=== PATIENT | female | born 1995 | race Hispanic/Latino ===

== ENCOUNTER 2017-09-09 11:11 | Outpatient (CLI) | payer MEDICAID ==
--- NOTE | 2017-09-09 13:17 | ULT ---
ULTRASOUND PELVIS TRANSVAGINAL WITH DOPLER: History Dysmenorrhea. COMPARISON: None. FINDINGS: The uterus measures 7.2 x 4.2 x 4.1 cm retroflexed. Endometrial thickness is less than 5 mm. The right ovary is not seen. The left ovary measures 3 x 2 x 1.9 cm with adequate vascular flow. Sm all-volume free fluid. Initially what was thought to be a mass in the right adnexa by the technologist ended up having peris talsis and felt to be bowel. Nabothian cysts are present in the cervix. IMPRESSION: 1. Nonvisualization of the right ovary. 2. Trace free fluid in the pelvis, likely physiologic. 3. Normal appearance of the left ovary with adequate vascular flow. POS: [facility]
== END 2017-09-09 11:12 | disposition home or self-care (01) ==
LOC: ULT 11:11
PROVIDERS: ATTEND Physician Assistant
DX: N94.6 Dysmenorrhea, unspecified (principal)
CPT/HCPCS: 76856